=== PATIENT | female | born 2005 | race Caucasian/White ===

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

== ENCOUNTER → 2025-02-07 | Outpatient (REF) | payer OTHER | LOC: M LAB REF 16:59 | DX: R30.0 Dysuria (principal) ==